=== PATIENT | male | born 1960 | race Caucasian/White ===

== ENCOUNTER 2016-10-28 09:33 | Emergency (ER) | payer BC ==
[~2016-10-28] VITALS: Ht 172.7 cm; Wt 125.3 kg
[2016-10-28] MEDS ORDERED: COZAAR100 MG PO (09:56)
[2016-10-28] MEDS ORDERED: FLONASE16 G1 BOTH NARES (09:57)
[2016-10-28] MEDS ORDERED: LOVASTATIN40 MG PO (09:57)
[2016-10-28] MEDS ORDERED: METFORMIN HCL1000 MG PO (09:57)
[2016-10-28] MEDS ORDERED: LIDODERM 5% P1 PATCH TD (10:23)
[2016-10-28] MEDS ORDERED: FLEXERIL10 MG PO (10:23)
[2016-10-28] MEDS ORDERED: PREDNISONE20 MG PO (10:23)
[2016-10-28 10:39] VITALS: BP 128/94
== END 2016-10-28 10:40 | disposition home or self-care (01) ==
LOC: EME 09:33
DX: S39.012A Strain of muscle, fascia and tendon of lower back, initial encounter (principal); M54.16 Radiculopathy, lumbar region; E11.9 Type 2 diabetes mellitus without complications; I10 Essential (primary) hypertension; E78.5 Hyperlipidemia, unspecified
CPT/HCPCS: 99281; 99283